=== PATIENT | male | born 1965 | race Caucasian/White ===

== ENCOUNTER 2019-02-28 06:12 | Day surgery (SDC) | payer OTHER ==
[~2019-02-28] VITALS: Ht 177.8 cm; Wt 167.0 kg
[~2019-02-28 06:12] MED LIST: SODIUM CHLORIDE 0.9% 1,000 ML IV ONE
[2019-02-28] MEDS ORDERED: SODIUM CHLORIDE 0.9% 1,000 ML IV ONE (06:30)
[2019-02-28 07:10] LABS: GLUCOMETER DEV NAME(LOC) SDS.; GLUCOSE,POINT OF CARE 137 MG/DL (70-110)
[2019-02-28] MEDS ORDERED: MONT10TA21 PO (07:44)
[2019-02-28] MEDS ORDERED: OMEP20 PO (07:44)
[2019-02-28] MEDS ORDERED: LISI-659 PO (07:44)
[2019-02-28] MEDS ORDERED: APRE30TA2 PO (07:44)
[2019-02-28] MEDS ORDERED: DILT120C88 PO (07:44)
[2019-02-28] MEDS ORDERED: ATOR40TA28 PO (07:44)
[2019-02-28] MEDS ORDERED: METF-960 PO (07:44)
[2019-02-28] MEDS ORDERED: FAMO20 PO (07:44)
[2019-02-28] MEDS ORDERED: BUPR75 PO (07:44)
[2019-02-28] MEDS ORDERED: ACET-2902 PO (07:44)
[2019-02-28] MEDS ORDERED: BUME1TAB34 PO (07:44)
[2019-02-28] MEDS ORDERED: DICY20 PO (07:44)
[2019-02-28] MEDS ORDERED: PRED10 PO (07:44)
[2019-02-28] MEDS ORDERED: TIOT4MIS2 PO (07:44)
[2019-02-28] MEDS ORDERED: ALEN35TA32 PO (07:44)
[2019-02-28] MEDS ORDERED: ALBU8HFA IH (07:44)
[2019-02-28] MEDS ORDERED: MOME13HF IH (07:44)
[2019-02-28] MEDS ORDERED: FLUT16H NASAL (07:44)
[2019-02-28] MEDS ORDERED: MIDAZOLAM HCL 2 MG/2 ML VIAL ONE (07:59)
[2019-02-28] MEDS ORDERED: FentaNYL CITRATE-PF 100 MCG/2 ML VIAL ONE (07:59)
[2019-02-28] MEDS ORDERED: MethylPREDNISolone SOD SUCC 125 MG/2 ML VIAL IVP ONE (09:00)
[2019-02-28] MEDS ORDERED: MethylPREDNISolone SOD SUCC 125 MG/2 ML VIAL ONE (09:02)
[2019-02-28] MEDS ORDERED: BENZOCAINE 20% 50 MCG/SPRAY 57 GM ONE (15:55)
[2019-02-28] MEDS ORDERED: LIDOCAINE 4% 50 ML SOLUTION ONE (15:55)
[2019-02-28] MEDS ORDERED: LIDOCAINE 2% 30 ML JELLY ONE (15:55)
[2019-02-28] MEDS ORDERED: ALBUTEROL SULFATE 2.5 MG/0.5 ML NEB SOLUTION NEB ONE (15:55)
[2019-02-28] MEDS ORDERED: OXYGEN THERAPY IH SCH (20:00)
== END 2019-02-28 10:20 | disposition home or self-care (01) ==
LOC: SURGERY 06:12
PROVIDERS: ATTEND Internal Medicine Critical Care Medicine
DX: J38.4 Edema of larynx (principal); B37.0 Candidal stomatitis; J98.8 Other specified respiratory disorders; J44.9 Chronic obstructive pulmonary disease, unspecified; I11.0 Hypertensive heart disease with heart failure; I50.9 Heart failure, unspecified; E11.9 Type 2 diabetes mellitus without complications; G47.33 Obstructive sleep apnea (adult) (pediatric); Z87.891 Personal history of nicotine dependence; Z87.01 Personal history of pneumonia (recurrent); Z87.442 Personal history of urinary calculi; Z79.899 Other long term (current) drug therapy; Z98.890 Other specified postprocedural states
CPT/HCPCS: 31623; 31624; 71045; 82962; 87015; 87070; 87077; 87101; 87186; 87205; 87206; 87220; 88108; 88312; J2250; J2930; J3010; J7030